=== PATIENT | female | born 1950 | race Caucasian/White ===

== ENCOUNTER 2016-11-05 05:24 | Inpatient (IN) | payer OTHER ==
[~2016-11-05] VITALS: Ht 160 cm; Wt 59.0 kg
[~2016-11-05 05:24] MED LIST: DICLOFENAC SODI75 M2 PO; FERROUS SULFAT325 M3 PO; LISINOPRIL-HCT1 EACH PO; TYLENOL ARTHRI650 M1; VITAMIN D31000 UNI1 PO; ZOLPIDEM TARTRA10 M1 PO
--- NOTE | 2016-11-05 13:35 | Patient Discharge Instructions ---
Discharge Instructions General Discharge Information You were seen/treated for: Left knee pain You had these procedures: Left total knee replacement Watch for these problems: Increasing pain, redness, warmth, swelling. Drainage of any type from incision. Inability to bear weight on left leg. Fever greater than 101.5. Do not soak the wound: Yes No bath, but you may shower: Yes Other wound care: Keep wound clean and dry Special Instructions: You'll be taking a blood thinning medication called Coumadin. Another name for this medication is warfarin. The dose of this medication is subject to change on a daily basis. It is based on blood work called INR. In the beginning of your recovery, your INR will be assessed daily. Once it has stabilized, it will be assessed 2-3 times per week. However the dose of the Coumadin may change on a daily basis. Please await specific instructions regarding how much Coumadin you are to be taking on a daily basis from Alexis Tomas MD's office. Diet Continue normal diet: Yes Recommended Diet: Regular Additional DIET Information: Advance as tolerated Activity Full Activity/No Limits: No Activity Self Limited: Yes Pounds, do NOT lift more than: 10 Acute Coronary Syndrome Inclusion Criteria At DC or during hospital stay patient has or had the following: ACS DIAGNOSIS No Discharge Core Measures Meds if any: Prescribed or Continued at Discharge Meds if any: NOT Prescribed or Continued at Discharge Congestive Heart Failure Inclusion Criteria At DC or during hospital stay patient has or had the following: CHF DIAGNOSIS No Discharge Core Measures Meds if any: Prescribed or Continued at Discharge Meds if any: NOT Prescribed or Continued at Discharge Cerebrovascular accident Inclusion Criteria At DC or during hospital stay patient has or had the following: CVA/TIA Diagnosis No Discharge Core Measures Meds if any: Prescribed or Continued at Discharge Meds if any: NOT Prescribed or Continued at Discharge Venous thromboembolism Inclusion Criteria VTE Diagnosis No VTE Type NONE VTE Confirmed by (Test) NONE Discharge Core Measures - Per Current guidelines, there needs to be overlap - treatment for the first 5 days of Warfarin therapy. - If discharged on Warfarin prior to 5 days of - overlap therapy, the patient will need to be - assessed for post discharge needs including - *Post discharge parental anticoagulation - *Warfarin and/or parental anticoagulation education - *Follow up date to check INR post discharge At least 5 days overlap therapy as Inpatient No Meds if any: Prescribed or Continued at Discharge Note: Overlap Therapy is Warfarin and Anticoagulant Meds if any: NOT Prescribed or Continued at Discharge
--- NOTE | 2016-11-05 13:37 | Surgical Discharge Summary ---
Visit Information Visit Dates Admission Date: 11/05/16 Discharge Date: 11/08/2016 History of Present Illness Chief Complaint: Left knee pain Surgical History Pertinent Surgical History: non-contributory Psychosocial History What is Your Primary Language? [place]er Review of Systems: See H&P Hospital Course Course Attending Physician: ARLETTE DAWKINS,LAMONTE Primary Care Physician[facility] [place] [facility] Course: Elizabeth was admitted to the hospital on 11/05/2016 for an elective left total knee replacement. She tolerated the procedure well. She was transferred to a general surgical floor. Her diet was advanced and tolerated. Her vital signs were stable and within normal limits. She voided spontaneously. Her pain was well controlled with the use of oral pain medications. She was evaluated and treated by physical therapy. She was deemed appropriate for discharge. Allergies: Coded Allergies: No Known Allergies (10/26/16) Disposition Summary Disposition Principal Diagnosis: Left knee unilateral primary osteoarthritis Additional Diagnosis: None Discharge Disposition: home health services Discharge Instructions General Discharge Information Code Status: Full Code Patient's Diet: Regular, advance as tolerated Patient's Activity: Weight-bear as tolerated on left leg Follow-Up Instructions/Appts: Please call or contact Lamonte Tomas MD's office to arrange and/or confirm your follow-up appointment. He would like for you to be seen in 2-4 weeks from date of surgery. Medications at Discharge Discharge Medications: Stop taking the following medications: Diclofenac Sodium (Diclofenac Sodium) 75 MG TABLET.DR ORAL TWICE DAILY Acetaminophen (Tylenol Arthritis) 650 MG TABLET.ER Continue taking these medications: Lisinopril/Hydrochlorothiazide (Lisinopril-Hctz 20-12.5 MG Tab) 20 MG-12.5 MG TABLET 1 Tablet ORAL DAILY Comments: Last Taken: 11/08/16 Time: 0900 AM Cholecalciferol (Vitamin D3) (Vitamin D3) 1,000 UNIT CAPSULE 1 Capsule ORAL DAILY Comments: NOT GIVEN IN HOSPITAL Ferrous Sulfate (Ferrous Sulfate) 325 MG (65 MG IRON) TABLET 1 Tablet ORAL DAILY Comments: NOT GIVEN IN HOSPITAL Zolpidem Tartrate (Zolpidem Tartrate) 10 MG TABLET 1 Tablet ORAL Every night as needed Comments: Last Taken: 11/07/16 Time: 2300 PM Start taking the following new medications: Docusate Sodium (Docusate Sodium) 100 MG CAPSULE 100 Milligram ORAL TWICE DAILY as needed for CONSTIPATION Days = 14 No Refills Instructions: stool softener available over the counter Comments: Last Taken: 11/08/16 Time: 0900 AM Warfarin Sodium (Coumadin) 5 MG TABLET 1 Tablet ORAL DAILY Qty = 30 No Refills Instructions: dose adjustment as per blood draws for PT/INR. goal INR 2-3. Comments: Last Taken: 11/07/16 Time: 1700 PM Hydromorphone HCl (Dilaudid) 2 MG TABLET 1-2 Tablet ORAL EVERY 4-6 HOURS NEEDED as needed for pain control Qty = 36 No Refills Instructions: take as directed for pain control. Comments: Last Taken: 11/08/16 Time: 1130 AM
--- NOTE | 2016-11-05 14:15 | NUR ---
NURSING NOTE: PATIENT ARRIVED TO FLOOR VIA STRETCHER WITH DISTRIBUTION FROM PACU. PATIENT A/OX3, DENIES PAIN AT THIS TIME. VSS. CONOR WRAP CDI TO LLE. ALPS IN PLACE AND FUNCTIONING. GARCIA IN PLACE, PATENT DRAINING CLEAR YELLOW URINE. ON-Q PUMP IN PLACE AND UNCLAMPED RUNNING THROUGH THE L ADDUCTOR CANAL AT 12ML/HR PER ORDER. ALL BELONGINGS ARRIVED TO ROOM WITH PATIENT AND . WILL CONTINUE TO MONITOR.
[2016-11-05 14:20] VITALS: BP 128/72
--- NOTE | 2016-11-05 14:40 | PN- Orthopedic ---
Subjective Subjective: Postop check, postop day 1 status post left total knee arthroplasty . Patient with some numbness in the left leg, currently has on-Q. no nausea no vomiting no chest pain no complaints. Objective Vital Signs and I&Os Vital signs stable Physical Exam: Well-developed well-nourished no apparent distress. HEENT: Atraumatic, extraocular motion intact Neck: Supple, no lymphadenopathy Respiratory: No respiratory distress Extremities: No edema LEFT lower extremity dressing in place, Compression wrap in place. ALPS in place Neurovascularly intact distally with some numbness residual in the left lower leg. Bilateral calves are supple, nontender. Neuro: Alert and oriented x3 Psych: Mood affect normal, normal memory normal judgment. Skin: Warm and dry, no rash on exposed skin Assessment/Plan Assessment/Plan Postop day 1 status post left total knee arthroplasty. -Continue on-Q -DVT prophylaxis with Coumadin and Alps, check INR in am -Ancef for infectious prophylaxis -Pain medication as needed -Out of bed with physical therapy, full weight-bearing bed -Regular diet -check labs in am Core Measures/Miscellaneous Venous Thromboembolism VTE Risk Factors: Age > 40, Surgery VTE Contraindications: No Contraindications VTE Diagnosis: No Beta Gordon Is Beta Gordon a Home Med? No Antibiotics Is Patient on Antibiotics? Yes If Yes: prophylaxis
[2016-11-05 17:12] VITALS: BP 122/66
[2016-11-05 22:35] VITALS: BP 127/53
[2016-11-06 06:13] VITALS: BP 125/67
--- NOTE | 2016-11-06 07:33 | PN- Orthopedic ---
See Addendum Subjective Subjective: Postop day 1 status post left total knee arthroplasty. Patient has minimal pain , taking minimal pain medication. She has no nausea no vomiting no chest pain or shortness of breath. She denies any fever or flulike illness. on-Q in place. She was ambulatory with physical therapy yesterday without difficulty. Objective Vital Signs and I&Os Vital Signs Date Time Temp Pulse Resp B/P Pulse O2 O2 Flow FiO2 Ox Delivery Rate 11/06 0613 98.1 73 20 125/67 98 Room Air 11/05 2235 99.0 83 20 127/53 96 Room Air 11/05 1712 98.2 66 18 122/66 96 11/05 1420 97.6 62 18 128/72 99 Room Air Intake & Output 11/06 0800 11/06 0000 11/05 1600 11/05 0800 11/05 0000 11/04 1600 Intake Total 1100 Output Total 350 600 Balance 750 -600 Intake, IV 600 Intake, Oral 500 Output, Urine 350 600 Patient 130 lb Weight Physical Exam: Well-developed well-nourished no apparent distress. HEENT: Atraumatic, extraocular motion intact Neck: Supple, no lymphadenopathy Respiratory: No respiratory distress Extremities: No edema left lower leg dressing in place, on Q catheter in place Small amount of dried blood staining at the apex of the dressing Range of motion 0-90 left knee Compression wrap in place. ALPS in place Neurovascularly intact distally Bilateral calves are supple, nontender. Neuro: Alert and oriented x3 Psych: Mood affect normal, normal memory normal judgment. Skin: Warm and dry, no rash on exposed skin Results Last 48 Hours of Labs: Laboratory Tests 11/06 617 Chemistry Sodium Pending Potassium Pending Chloride Pending Carbon Dioxide Pending Anion Gap Pending BUN Pending Creatinine Pending BUN/Creatinine Ratio Pending Coagulation PT Pending INR Pending Hematology CBC w Diff Pending WBC Pending RBC Pending Hgb Pending Hct Pending MCV Pending MCH Pending RDW Pending Plt Count Pending MPV Pending PUBS MCHC Pending Assessment/Plan Assessment/Plan Postop day 1 status post left total knee arthroplasty. -Patient doing extremely well postoperatively. She has no complaints. -Continue physical therapy, weightbearing as tolerated, range of motion. -Coumadin for DVT prophylaxis, follow INR today -Labs pending this morning, will follow -Pain medication as needed. -Plan for discharge home 1-2 days Core Measures/Miscellaneous Venous Thromboembolism VTE Risk Factors: Age > 40, Surgery VTE Contraindications: No Contraindications VTE Diagnosis: No Beta Gordon Is Beta Gordon a Home Med? No Antibiotics Is Patient on Antibiotics? Yes If Yes: prophylaxis
[2016-11-06 08:06] LABS: ABSOLUTE BASOPHIL COUNT 0 /CUMM (0.0-0.2); ABSOLUTE EOSINOPHIL COUNT 0 /CUMM (0.0-0.7); ABSOLUTE GRANULOCYTE CT 11.7 /CUMM (1.4-6.5); ABSOLUTE LYMPH COUNT 1.2 /CUMM (1.2-3.4); ABSOLUTE MONOCYTE COUNT 0.8 /CUMM (0.10-0.60); BASOPHIL % 0 % (0.0-2.0); EOSINOPHIL % 0 % (0-5); HEMATOCRIT 28.5 % (37-47); MEAN CORPUSCULAR HGB CONC 33.6 G/DL (33.0-37.0); MEAN CORPUSCULAR VOLUME 92.1 FL (81.0-99.0); MEAN PLATELET VOLUME 8.8 FL (7.4-10.4); PLATELET COUNT 159 /CUMM (130-400); RBC DISTRIBUTION WIDTH 14.3 % (11.5-14.5); RED BLOOD CELL CT 3.09 /CUMM (4.20-5.40)
[2016-11-06 08:09] LABS: GRANULOCYTE % 85.1 % (42.2-75.2)
[2016-11-06 09:00] LABS: WHITE BLOOD CELL COUNT 13.8 /CUMM (4.8-10.8)
[2016-11-06 14:31] VITALS: BP 109/49
[2016-11-06 22:32] VITALS: BP 118/70
--- NOTE | 2016-11-07 07:16 | PN- Orthopedic ---
See Addendum Subjective Subjective: POD#2 /SP LEFT TKA 5-10 PAIN LET KNEE, BETTER WITH PO PAIN MEDS DENEIS CP, SOB, NO N+V WITH DIET DOING WELL WITH PT Objective Vital Signs and I&Os Vital Signs Date Time Temp Pulse Resp B/P Pulse O2 O2 Flow FiO2 Ox Delivery Rate 11/062 99.0 71 20 118/70 96 Room Air 11/06 1431 97.6 75 20 109/49 98 Room Air 11/06 0816 73 125/67 Intake & Output 11/07 0800 11/07 0000 11/06 1600 11/06 0800 11/06 0000 11/05 1600 Intake Total 400 1100 Output Total 650 400 350 600 Balance -250 -400 750 -600 Intake, IV 600 Intake, Oral 400 500 Output, Urine 650 400 350 600 Patient 130 lb Weight Physical Exam: CV: RRR LUNGS: CLEAR ABD: SOFT, +BS EXT: DRSG CHANGED, WOUND C/D/I DISTAL CMS INTACT NO CALF TENDERNESS BILAT Assessment/Plan Assessment/Plan ORTHO STABLE PLAN TITRATE COUMADIN FOR INR 2-3 CONT OOB WITH PT PLANNING HOME D/C TOMORROW WILL D/W ATTENDING Core Measures/Miscellaneous Venous Thromboembolism VTE Risk Factors: Age > 40, Surgery VTE Contraindications: No Contraindications VTE Diagnosis: No Beta Gordon Is Beta Gordon a Home Med? No Antibiotics Is Patient on Antibiotics? Yes If Yes: prophylaxis
[2016-11-07 07:56] VITALS: BP 124/72
[2016-11-07 07:59] LABS: ABSOLUTE BASOPHIL COUNT 0 /CUMM (0.0-0.2); ABSOLUTE EOSINOPHIL COUNT 0.2 /CUMM (0.0-0.7); ABSOLUTE GRANULOCYTE CT 6.2 /CUMM (1.4-6.5); ABSOLUTE LYMPH COUNT 2.3 /CUMM (1.2-3.4); ABSOLUTE MONOCYTE COUNT 0.9 /CUMM (0.10-0.60); BASOPHIL % 0.3 % (0.0-2.0); EOSINOPHIL % 1.9 % (0-5); GRANULOCYTE % 64.1 % (42.2-75.2); HEMATOCRIT 27.8 % (37-47); MEAN CORPUSCULAR HGB 30.7 PG (27.0-31.0); MEAN CORPUSCULAR HGB CONC 33.6 G/DL (33.0-37.0); MEAN CORPUSCULAR VOLUME 91.3 FL (81.0-99.0); MEAN PLATELET VOLUME 8.7 FL (7.4-10.4); PLATELET COUNT 152 /CUMM (130-400); RBC DISTRIBUTION WIDTH 14.1 % (11.5-14.5); RED BLOOD CELL CT 3.05 /CUMM (4.20-5.40); WHITE BLOOD CELL COUNT 9.6 /CUMM (4.8-10.8)
[2016-11-07 08:26] LABS: PT 14.2 SEC (9.4-12.5)
[2016-11-07] MEDS ORDERED: DILAUDID2 M1 PO ×2 (08:59→12:53)
--- NOTE | 2016-11-07 10:45 | NUR ---
NURSING NOTE: PATIENT A/OX3, DENIES PAIN AT THIS TIME. PATIENT LEFT FLOOR VIA STRETCHER WITH DISTRIBUTION FOR XRAY. WILL AWAIT RETURN.
--- NOTE | 2016-11-07 11:19 | NUR ---
NURSING NOTE: PATIENT RETURNED TO FLOOR VIA STRETCHER WITH DISTRIBUTION FROM XRAY. PATIENT A/OX3, DENIES PAIN AT THIS TIME. WILL CONTINUE TO MONITOR
--- NOTE | 2016-11-07 11:23 | RADIOLOGY REPORT ---
EXAMINATION: XR KNEE, LEFT CLINICAL INFORMATION: Status post left TKA. COMPARISON: 01/17/2008 TECHNIQUE: Two views of the left knee. FINDINGS: There is a new total left knee arthroplasty. The distal femoral component articulates appropriately with the tibial plateau and patellar components. No periprosthetic lucency or fracture. Postoperative soft tissue gas is noted with soft tissue swelling. Small joint lesion noted. IMPRESSION: Appropriate alignment of the left total knee arthroplasty.
--- NOTE | 2016-11-07 12:39 | Operative Report ---
Operative/Inv Procedure Report Surgery Date: 11/05/16 Name of Procedure: Left total knee arthroplasty Pre-Operative Diagnosis: Left knee primary osteoarthritis Post-Operative Diagnosis: Same Estimated Blood Loss: 50ml to 100ml Surgeon/Filemaker Developer: ARLETTE DAWKINS,Chencho ABURTO Anesthesia: block Implants: Striker triathlon total knee system size 3 femur cruciate retaining, size 2 tibia, 11 mm polyethylene insert cruciate retaining, 27 patella Drains: None Specimens: Femoral, tibial, patellar bone Microbiology: Urine Tourniquet: 55 minutes Complications: None Condition: Stable Operative Indication: Patient is a 66-year-old woman who has gradually worsening left knee symptoms consistent with osteoarthritis. She developed end-stage degenerative changes of the left knee. She underwent treatments which included medications and activity modification and cortisone injection. She had short-term relief with conservative measures. Due to interference with her normal activities of daily living, she wished to proceed with total knee arthroplasty. Risks, benefits and expectations of surgical and further nonsurgical options were discussed including but not limited to persistent knee pain, need for subsequent surgery, infection, DVT, injury to blood vessel or nerve, anesthesia risks. She wished to proceed with total knee arthroplasty Operative/Procedure Note Note: The patient was brought to the operating room and transferred to the operating table. Once under appropriate anesthesia the left lower extremity was prepped and draped in standard fashion. Preoperative IV antibiotics were given prophylactically. Leg was elevated exsanguinated and tourniquet was inflated to 300 mm of pressure. A standard anterior incision was made for anticipated medial parapatellar approach to the knee. The incision was taken down sharply to the underlying retinaculum. A medial retinacular approach was made with minimal extension into the quadriceps tendon. There was severe degenerative changes of the patellofemoral carmine and medial compartment end-stage eburnation along the anterior medial knee. Remnants of the medial and lateral meniscal tissues were excised. Remnants of the ACL were excised. The knee was flexed patella was subluxed exposing the knee. Osteophytes were excised along the surrounding area of the femur. The drill was used to enter the image intramedullary canal for the intramedullary guide for the distal femoral cut. A 6 valgus was chosen. The cutting block was pinned in place and the appropriate thickness was removed. Femur was incised was size 3. Size 3 cutting jig was pinned in place and the cuts were made while protecting the soft tissues. The external tibial alignment guide was applied to the tibia the cutting block was pinned in place for a neutral cut from medial to lateral and reproducing patient 's posterior slow-paced on preoperative templating and intraoperative findings. The cutting block was pinned into place and the soft tissues were protected while the cuts were made. The tibial cut was made and the tibia was sized to a size 2. Size 2 trial polyethylene insert and the femur were inserted and the knee was taken out to full extension. There was symmetrical ligament balance and the definitive insert would likely be 11 mm insert this would be confirmed later on the case. I then turned my attention to the patella. The patella was measured and the appropriate thickness was removed and then restored with a 27 mm patella. The 3 lug holes were drilled and the knee was taken out through range of motion. There was no need for a lateral release. I then removed all trial components and then drilled the 2 lug holes for the femur and marked my rotation of the tibia. The tibial preparation was completed with the tibial punch. All trial components and his rotations were removed. Copious irrigation the knee followed. I then used the anterior chamfer bone to plug the distal femur to minimize postoperative hemarthrosis and postoperative swelling. Once the cement was ready was applied to the dry clean bony surfaces of the tibia. The size 2 tibia was impacted in place and excess cement was removed with curettes. Cement was applied to the dry clean bony surfaces of the femur and then the definitive size 3 femoral component was impacted in place and excess cement was removed with curettes. Cement was applied to the dry clean bony surfaces of the tibia after the trial polyethylene insert was applied and the knee was taken out to full extension. The definitive 27 mm patella was impacted in place and the excess cement was removed with a knife. As the cement was hardening I did appear articular pericapsular injection of a cocktail which included ropivacaine with epinephrine and Toradol for postoperative pain and inflammation management. Once the cement was hardening took the knee through range of motion. Small pieces of excess cement were removed with osteotome. I then did a trial reduction with the 11 mm insert I was satisfied with the stability. Full extension no evidence of mid flexion stability and full flexion to gravity. I then removed the trial component and then place a definitive 11 mm cruciate retaining liner. Tibial tray was copiously irrigated and any remaining soft tissue, bone fragments or cement fragments were removed from the tibial tray. The definitive size 11 mm insert was impacted in place and the locking mechanism was confirmed. Opus irrigation the knee followed. Tourniquet was deflated at 55 minutes. There was no need for a drain. Patient was under the TXA protocol. I then closed the retinaculum after copious irrigation. Copious irrigation followed every level of closure. Retinacular and minimal extension of the quadriceps tendon was closed with interrupted #1 Vicryl suture. The patient's tissues closed in 2 layers with 2-0 Vicryl and skin was closed was running 3-0 Vicryl suture with the knee in flexion. Appropriate just his were applied and patient was awakened and taken to recovery room in good condition. No intraoperative complications. Blood loss was 50 mL Discharge Disposition: PACU
[2016-11-07] MEDS ORDERED: COUMADIN5 M2 PO (12:53)
[2016-11-07] MEDS ORDERED: DOCUSATE SODIU100 M3 PO (12:53)
[2016-11-07 14:24] VITALS: BP 116/60
[2016-11-07 23:00] VITALS: BP 120/76
[2016-11-08 07:33] VITALS: BP 135/76
[2016-11-08 07:45] LABS: ABSOLUTE BASOPHIL COUNT 0 /CUMM (0.0-0.2); ABSOLUTE EOSINOPHIL COUNT 0.3 /CUMM (0.0-0.7); ABSOLUTE GRANULOCYTE CT 6.1 /CUMM (1.4-6.5); ABSOLUTE LYMPH COUNT 2.3 /CUMM (1.2-3.4); ABSOLUTE MONOCYTE COUNT 0.8 /CUMM (0.10-0.60); BASOPHIL % 0.3 % (0.0-2.0); EOSINOPHIL % 3.4 % (0-5); GRANULOCYTE % 63.7 % (42.2-75.2); HEMATOCRIT 29.4 % (37-47); MEAN CORPUSCULAR HGB 30.2 PG (27.0-31.0); MEAN CORPUSCULAR HGB CONC 32.6 G/DL (33.0-37.0); MEAN CORPUSCULAR VOLUME 92.6 FL (81.0-99.0); MEAN PLATELET VOLUME 8.5 FL (7.4-10.4); PLATELET COUNT 164 /CUMM (130-400); RBC DISTRIBUTION WIDTH 14.5 % (11.5-14.5); RED BLOOD CELL CT 3.18 /CUMM (4.20-5.40); WHITE BLOOD CELL COUNT 9.6 /CUMM (4.8-10.8)
[2016-11-08 08:24] LABS: PT 20.1 SEC (9.4-12.5)
--- NOTE | 2016-11-08 09:10 | PN- Orthopedic ---
Subjective Subjective: Pt. reports comfortable, received Diluadid over night and Tylenol early this morning Little hesitant to go home Objective Vital Signs and I&Os Vital Signs Date Time Temp Pulse Resp B/P Pulse O2 O2 Flow FiO2 Ox Delivery Rate 11/08 0852 85 122/62 11/08 0733 98.8 80 18 135/76 97 Room Air 11/07 2300 98.7 73 18 120/76 98 Room Air 11/07 1424 97.9 80 20 116/60 98 Room Air Intake & Output 11/08 1600 11/08 0800 11/08 0000 11/07 1600 11/07 0800 11/07 0000 Intake Total 120 440 900 250 400 Output Total 100 700 200 300 650 Balance 20 -260 700 -50 -250 Intake, Oral 120 440 900 250 400 Output, Urine 100 700 200 300 650 Alert, oriented, appropriate, Heart regular Lungs clear bilat Abdomen benighn L knee dressing is clean, dry, intact. Good sensation and distal perfusion to LLE No calf tenderness No focal deficits. Assessment/Plan Assessment/Plan s/p L TKR for OA POD#3 Progressing as expected. Incision without infection Adequate distal perfusion, no neurological deficits Ambulated with PT/ walker this morning, will review note Blood work unremarkable Anticipate discharge home today on Coumadin. Core Measures/Miscellaneous Venous Thromboembolism VTE Risk Factors: Age > 40, Surgery VTE Contraindications: No Contraindications VTE Diagnosis: No Beta Gordon Is Beta Gordon a Home Med? No Antibiotics Is Patient on Antibiotics? Yes If Yes: prophylaxis
[2016-11-08 14:06] VITALS: BP 118/60
== END 2016-11-08 15:23 | disposition home health service (06) | DRG 470 ==
LOC: ENRESERVDT → ENRESERVTM → SDA 05:24 → 2NB 05:24 → ENPENDDIS 05:24 → 2NB 14:14
PROVIDERS: Physician Assistant; Physician Assistant Surgical; ADMIT Orthopaedic Surgery
PROC: 0SRD0J9 Replacement of Left Knee Joint with Synthetic Substitute, Cemented, Open Approach (ICD-10-PCS; principal; 2016-11-05)
DX: M17.12 Unilateral primary osteoarthritis, left knee (principal); I10 Essential (primary) hypertension; M19.90 Unspecified osteoarthritis, unspecified site
CPT/HCPCS: 2NBSP; 36415; 73560-LT; 82436; 87086; 88305; 90662; 97110-GO; 97116-GO; 97161-GP; 97530-GO; C1713; J0131; J0171; J1885; J2795; J3370; J7060